=== PATIENT | female | born 1955 | race African-American/Black ===

== ENCOUNTER 2017-09-12 07:19 | Emergency (ER) | payer MEDICAID ==
[~2017-09-12] VITALS: Ht 167.6 cm; Wt 102.1 kg
[2017-09-12] MEDS ORDERED: STOOL SOFTER (07:32)
[2017-09-12] MEDS ORDERED: cholesterol pill (07:32)
[2017-09-12] MEDS ORDERED: Norco 5mg/325mg tab ORAL ONE (07:45)
--- NOTE | 2017-09-12 08:28 | Emergency Room Report ---
History of Present Illness General Chief Complaint: Lower Extremity Injury Source: Patient Present Illness HPI 61-year-old female, presenting with left hip pain for one month. Patient states that one month ago she fell onto her left side, since then she has been walking with her walker, but states that it intermittently hurts. States for the last week it has been excruciating. States that she was alone, has still been able to somewhat walk with her walker. No urinary retention. No numbness of legs. Pointing to left hip or pain radiating down to herleg Allergies: Coded Allergies: No Known Allergies (Unverified , 09/12/17) Patient History Past Medical History: see triage record Past Surgical History: none Pertinent Family History: none Last Menstrual Period: HYST Reviewed Nursing Documentation: PMH: Agreed, PSxH: Agreed Nursing Documentation-PMH Hx Cancer: Yes - Breast; Kidney Hx Gastrointestinal Problems: Yes - Reflux Review of Systems All Other Systems: negative except mentioned in HPI Physical Exam Vital Signs Date Time Temp Pulse Resp B/P (MAP) Pulse Ox O2 Delivery O2 Flow Rate FiO2 09/12/17 07:26 97.7 65 18 148/76 98 Room Air Sp02 EP Interpretation: reviewed, normal General Appearance: alert, GCS 15, non-toxic, mild distress Head: normocephalic, atraumatic Eyes: bilateral eye normal inspection, bilateral eye PERRL, bilateral eye EOMI ENT: normal ENT inspection, normal pharynx, normal voice, moist mucus membranes Neck: normal inspection, full range of motion, supple Respiratory: normal inspection, lungs clear, normal breath sounds, no respiratory distress, no retraction, no wheezing, speaking full sentences, chest symmetrical Cardiovascular #1: normal inspection, regular rate, rhythm, normal capillary refill Cardiovascular #2: 2+ radial (R), 2+ radial (L) Gastrointestinal: normal inspection, non tender, soft, non-distended, no guarding Musculoskeletal: other - L sided hip tenderness, limited ROM L hip 2/2 to pain , no midline tenderness of back, no spinal tenderness. no shortening or rotation of limb Neurologic: normal inspection, alert, oriented x3, responsive, motor strength/ tone normal, sensory intact, speech normal Psychiatric: normal inspection, judgement/insight normal, memory normal Skin: normal inspection, normal color, no rash, warm/dry, well hydrated, normal turgor Medical Decision Making Diagnostic Impression: Primary Impression: Left hip pain ER Course 61-year-old female with left hip pain DDX: Likely musculoskeletal back pain vs. muscular strain vs. fracture/contusion Plan: Pain control CT hip ER course: Patient has remained nontoxic appearing and ambulatory in the ED. Pain improved w/ medications CT neg Disposition: Patient will be discharged to home Strict precautions discussed with patient on when to emergently return to the ED which includes severe/worsening back pain, leg weakness/numbness, urinary retention/incontinence, fever or chills, which may indicate severe illness. Patient is to follow up with their PMD within 5 days. Patient agrees with plan. Please note that this Emergency Department Report was dictated using [employer] technology software, occasionally this can lead to erroneous entry secondary to interpretation by the dictation equipment. CT/MRI/US Diagnostic Results CT/MRI/US Diagnostic Results : Imaging Test Ordered: CT L hip Impression IMPRESSION: No acute fracture identified. 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 Post hysterectomy. Umbilical hernia containing fat. Last Vital Signs Date Time Temp Pulse Resp B/P (MAP) Pulse Ox O2 Delivery O2 Flow Rate FiO2 09/12/17 07:26 97.7 65 18 148/76 98 Room Air Disposition: HOME, SELF-CARE Condition: Improved Scripts Acetaminophen* (TYLENOL EXTRA STRENGTH*) 500 Mg Tablet 500 MG ORAL Q8H Y for Prn Headache/Temp > 101, #30 TAB 0 Refills Prov: Angela Parra M.D. 09/12/17 Hydrocodone Bit/Acetaminophen 5-325* (NORCO 5-325*) 1 Each Tablet 1 TAB ORAL Q6H Y for For Pain, #10 TAB 0 Refills Prov: Angela Parra M.D. 09/12/17 Referrals: COLTEN PEDROZA,REFERRING (PCP) Angela Parra M.D. Sep 12, 2017 08:28
[2017-09-12] MEDS ORDERED: NORCO 5-325 TA1 EACH ORAL (08:37)
[2017-09-12] MEDS ORDERED: TYLENOL EXTRA500 MG ORAL (08:37)
[2017-09-12] MEDS ORDERED: Ketorolac 30mg Inj IM ONE (09:00)
--- NOTE | 2017-09-12 09:38 | Diagnostic Imaging Report ---
Indication: Hip pain Technique: continuous helical imaging in the transaxial plane was performed from the iliac crests to the pubic symphysis with attention to the left hip. Coronal 2-D reformatted images were also generated. Study obtained in a Siemens Sensation [address] total DLP: 781.18 mGycm CTD/vol: 26.67 mGy Comparison: None Findings: There is no evidence of an acute fracture or significant malalignment identified on this examination. Some marginal spurs are noted involving the hip joints. Vacuum disc phenomena and hypertrophied facets noted in the lower lumbar spine. Prominent anterior abdominal wall hernia containing fat demonstrated. This is at the level of the umbilicus. The appendix is incidentally noted and normal in appearance. Uterus is not seen. IMPRESSION: No acute fracture identified. 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 Post hysterectomy. Umbilical hernia containing fat. The CT scanner at [facility] is accredited by the [employer] and the scans are performed using dose optimization techniques as appropriate to a performed exam including Automatic Exposure control.
[2017-09-12 09:56] VITALS: BP 148/76
== END 2017-09-12 09:58 | disposition home or self-care (01) ==
LOC: EDBD 07:19 → EMR 08:19
DX: M25.552 Pain in left hip (principal); Z85.3 Personal history of malignant neoplasm of breast; Z85.528 Personal history of other malignant neoplasm of kidney; K42.9 Umbilical hernia without obstruction or gangrene; Z90.710 Acquired absence of both cervix and uterus
CPT/HCPCS: 73700; 96372; 99284; J1885

== ENCOUNTER 2019-05-22 12:00 | Emergency (ER) | payer MEDICARE, MEDICAID ==
[~2019-05-22] VITALS: Ht 167.6 cm; Wt 104.3 kg
[~2019-05-22 12:00] MED LIST: NORCO 5-325 TA1 EACH ORAL; STOOL SOFTER; TYLENOL EXTRA500 MG ORAL; cholesterol pill
--- NOTE | 2019-05-22 12:38 | NUR ---
ED Nurse Note: Patient wants to wait for MD in waiting room.
--- NOTE | 2019-05-22 12:40 | NUR ---
ED Nurse Note: Patient walked into ER due to 'spider bite' to left ankle. Reports no fever, chills or rash. Swelling over the left ankle noted. No redness or drainage noted. Patient ambulating to the room with steady gait.
[2019-05-22 12:45] VITALS: BP 122/0
--- NOTE | 2019-05-22 12:45 | NUR ---
ED Nurse Note: Pt walked in due to left ankle pain and possible spide rbite happened an hour prior ED arrival. Noted swelling on left ankle. AAO x4, ambulates with her walker.
--- NOTE | 2019-05-22 13:24 | Emergency Room Report ---
History of Present Illness General Chief Complaint: Skin Rash/Abscess Source: Patient, Medical Record Present Illness HPI 63-year-old female presents to the emergency department complaining of 8 out of 10 severity pain, erythema and swelling to an insect bite to the left lateral ankle x3 hours. Patient reports symptoms are progressing. Patient states she believes it was a spider as she saw spider nearby that was orange color. Patient denies fevers, chills she denies paresthesias distal to the injury. Patient denies trauma or fall. Denies calf pain. Pt. uses walker to ambulate. Denies lesions/rashes elsewhere on the body. Denies new medications or body washes or creams. Denies swelling of the lips, tongue , throat or airway. Denies wheezing, or shortness of breath. Denies recent travel, recent illness or ill contacts. denies blisters, oral lesions, or sloughing of the skin. Allergies: Coded Allergies: No Known Allergies (Unverified , 09/12/17) Patient History Past Medical History: see triage record Past Surgical History: none Pertinent Family History: none Social History: Reports: smoking Now: No Immunizations: UTD Reviewed Nursing Documentation: PMH: Agreed; PSxH: Agreed Nursing Documentation-PMH Past Medical History: No History, Except For Hx Hypertension: Yes Hx Cancer: Yes - Breast; Kidney Hx Gastrointestinal Problems: Yes - Reflux Review of Systems All Other Systems: negative except mentioned in HPI Physical Exam Vital Signs Date Time Temp Pulse Resp B/P (MAP) Pulse Ox O2 Delivery O2 Flow Rate FiO2 05/22/19 12:35 97.5 67 16 116/75 (89) 94 Room Air Sp02 EP Interpretation: reviewed, normal General Appearance: no apparent distress, alert, GCS 15, non-toxic Head: normocephalic, atraumatic Eyes: bilateral eye normal inspection, bilateral eye PERRL ENT: hearing grossly normal, normal voice Neck: full range of motion Respiratory: lungs clear, normal breath sounds, speaking full sentences Cardiovascular #1: regular rate, rhythm, no edema, normal capillary refill Cardiovascular #2: 2+ dorsalis pedis (L) Musculoskeletal: back normal, gait/station normal, normal range of motion, inflammation - lateral aspect of the left ankle. , swelling - lateral aspect of the left ankle, no circumferential swelling or erythema Neurologic: alert, oriented x3, responsive, motor strength/tone normal, sensory intact, speech normal, grossly normal Psychiatric: judgement/insight normal Skin: other - Erythema, swelling and warmth to the lateral aspect of the left ankle. Lymphatic: no adenopathy Medical Decision Making PA Attestation Dr. Ferguson Is my supervising Physician whom patient management has been discussed with. Diagnostic Impression: Primary Impression: Insect bite Qualified Codes: S90.562A - Insect bite (nonvenomous), left ankle, initial encounter; W57.XXXA - Bitten or stung by nonvenomous insect and other nonvenomous arthropods, initial encounter Additional Impression: Cellulitis Qualified Codes: L03.116 - Cellulitis of left lower limb ER Course 63-year-old female presents to the emergency department complaining of 8 out of 10 severity pain, erythema and swelling to an insect bite to the left lateral ankle x3 hours. Patient reports symptoms are progressing. Patient states she believes it was a spider as she saw spider nearby that was orange color. Patient denies fevers, chills she denies paresthesias distal to the injury. Patient denies trauma or fall. Denies calf pain. Pt. uses walker to ambulate. Denies lesions/rashes elsewhere on the body. Denies new medications or body washes or creams. Denies swelling of the lips, tongue , throat or airway. Denies wheezing, or shortness of breath. Denies recent travel, recent illness or ill contacts. denies blisters, oral lesions, or sloughing of the skin. Ddx considered but are not limited to cellulitis, scabies, insect bites, tic bites, spider bites, contact dermatitis, Drug reaction, allergic reaction, fungal infection, MSK injury Vital signs: are WNL, pt. is afebrile H&PE are most consistent with insect bite with cellulitis. no evidence of systemic spread, no suspicion for msk injury. ORDERS: none required at this time, the diagnosis is clinical ED INTERVENTIONS: -Keflex PO -Bactrim DS PO -[place] PO DISCHARGE: At this time pt. is stable for d/c to home. Will provide printed patient care instructions, and any necessary prescriptions. Care plan and follow up instructions have been discussed with the patient prior to discharge. Last Vital Signs Date Time Temp Pulse Resp B/P (MAP) Pulse Ox O2 Delivery O2 Flow Rate FiO2 05/22/19 12:35 97.5 67 16 116/75 (89) 94 Room Air Disposition: HOME, SELF-CARE Condition: Stable Scripts Acetaminophen With Codeine (T#3) (TYLENOL #3 TAB*) Y Tab 1 TAB ORAL Q8HR PRN for For Pain, #6 TAB Prov: Florence Lizarraga 05/22/19 Trimethoprim/Sulfamethoxazole 160/800* (BACTRIM DS TABLET*) 1 Each Tablet 1 TAB ORAL TWICE A DAY, #14 TAB Prov: Florence Lizarraga 05/22/19 Cephalexin* (KEFLEX*) 500 Mg Capsule 500 MG ORAL EVERY 12 HOURS, #14 CAP 0 Refills Prov: Florence Lizarraga 05/22/19 Referrals: NOT CHOSEN IPA/MD,REFERRING (PCP) Patient Instructions: Cellulitis, [id number], Insect Bite, [id number] Additional Instructions: Take medications as directed. Follow up with a Primary Care Provider in 3-5 days, even if your symptoms have resolved. --Please review list of primary care clinics, if you do not already have a primary care provider Return sooner to ED if new symptoms occur, or current symptoms become worse. Do not drink alcohol, drive, or operate heavy machinery while taking Tylenol # 3 as this may cause drowsiness. - Please note that this Emergency Department Report was dictated using [employer] technology software, occasionally this can lead to erroneous entry secondary to interpretation by the dictation equipment. Florence Lizarraga May 22, 2019 13:24
[2019-05-22] MEDS ORDERED: ACETAMINOPHEN-1 EAC1 ORAL (13:30)
[2019-05-22] MEDS ORDERED: Bactrim-DS 1 tab ORAL ONE (13:30)
[2019-05-22] MEDS ORDERED: CEPHALEXIN500 MG ORAL (13:30)
[2019-05-22] MEDS ORDERED: BACTRIM DS TAB1 EAC1 ORAL (13:30)
[2019-05-22] MEDS ORDERED: HYDROcodone/Acetamin 5/325 tab ORAL ONE (13:30)
[2019-05-22] MEDS ORDERED: Cephalexin 500mg cap ORAL ONE (13:30)
--- NOTE | 2019-05-22 13:45 | NUR ---
ER DISCHARGE NOTE: Patient is cleared to be discharged per ERMD, pt is aox4, on room air, with stable vital signs. pt was given dc and prescription instructions, pt was able to verbalize understanding. pt is able to ambulate with steady gait. pt took all belongings.
[2019-05-22 14:04] VITALS: BP 122/78
== END 2019-05-22 14:06 | disposition home or self-care (01) ==
LOC: EMR 13:02
DX: S90.562A Insect bite (nonvenomous), left ankle, initial encounter (principal); L03.116 Cellulitis of left lower limb; I10 Essential (primary) hypertension; K21.9 Gastro-esophageal reflux disease without esophagitis; Z85.528 Personal history of other malignant neoplasm of kidney; Z85.3 Personal history of malignant neoplasm of breast; F17.200 Nicotine dependence, unspecified, uncomplicated; W57.XXXA Bitten or stung by nonvenomous insect and other nonvenomous arthropods, initial encounter; Y92.9 Unspecified place or not applicable
CPT/HCPCS: 99283